=== PATIENT | male | born 1965 | race Hispanic/Latino ===

== ENCOUNTER 2018-07-04 09:18 | Emergency (ER) | payer BC ==
[~2018-07-04] VITALS: Ht 170.2 cm; Wt 81.2 kg
[~2018-07-04 09:18] MED LIST: CLINDAMYCIN HC150 MG PO; PROCTOZONE-HC30 GM; VITAMIN D35000 UNIT PO
--- NOTE | 2018-07-04 09:25 | NUR ---
PT DECLINES OFFER FOR CAREER DEVELOPMENT FACILITATOR AT THIS TIME. PT ADVISED TO LET NURSE KNOW AT ANYTIME IF HE PREFERS SEASONING SPRAYER SERVICES. PT VERBALIZED UNDERSTANDING.
[2018-07-04 10:29] LABS: BASOPHILS % 1.2 % (0.0-1.0); EOSINOPHILS # (AUTO) 0.1 (0.0-0.4); EOSINOPHILS % 3.2 % (0.0-6.0); HEMATOCRIT 41.7 % (38.2-49.6); HEMOGLOBIN 14.8 g/dL (14.0-18.0); LYMPHOCYTES # (AUTO) 1.2 (1.0-3.2); LYMPHOCYTES % 33.9 % (18.0-39.1); MEAN CORPUSCULAR HGB CONC 35.5 g/dL (31-35); MEAN CORPUSCULAR VOLUME 92.9 fL (81-99); MONOCYTES # (AUTO) 0.5 (0.2-0.8); NEUTROPHILS # (AUTO) 1.7 (2.1-6.9); NEUTROPHILS % 48.4 % (38.7-80.0); PLATELET COUNT 207 x10e3/uL (140-360); RED BLOOD COUNT 4.49 x10e6/uL (4.3-5.7); RED CELL DISTRIBUTION WIDTH 11.6 % (11.7-14.4)
[2018-07-04 10:45] LABS: ALANINE AMINOTRANSFERASE 28 IU/L (0-55); ALBUMIN 3.9 g/dL (3.5-5.0); ALBUMIN/GLOBULIN RATIO 1.2 (0.8-2.0); ALKALINE PHOSPHATASE 67 IU/L (40-150); ANION GAP 12.7 mmol/L (8-16); BLOOD UREA NITROGEN 8 mg/dL (7-26); BUN/CREATININE RATIO 11 (6-25); CALCIUM 9.1 mg/dL (8.4-10.2); CARBON DIOXIDE 24 mmol/L (22-29); CHLORIDE 93 mmol/L (98-107); CREATINE KINASE 58 IU/L (30-200); CREATININE, SERUM 0.76 mg/dL (0.72-1.25); EST GLOMERULAR FILTRATION RATE > 60 ML/MIN (60-); GLUCOSE 251 mg/dL (74-118); POTASSIUM 3.7 mmol/L (3.5-5.1); SODIUM 126 mmol/L (136-145)
--- NOTE | 2018-07-04 11:04 | Diagnostic Imaging Report ---
Examination: Single AP view of the chest. COMPARISON: None. INDICATION: Chest palpitations DISCUSSION: Lines/tubes: None. Lungs: The lungs are well inflated and clear. No of pneumonia or pulmonary edema. Pleura: No pleural effusion or pneumothorax. Heart and mediastinum: The heart and the mediastinum are unremarkable. Bones and soft tissues: No acute bony abnormalities. IMPRESSION: 1. No acute cardiopulmonary abnormalities. Signed by: Dr. Kwesi Greenwood M.D. on 07/04/2018 11:00 AM
[2018-07-04] MEDS ORDERED: SODIUM CHLORIDE 0.9% 1000ML 1,000 ML IV SCH (11:15)
--- NOTE | 2018-07-04 11:17 | NUR ---
rec'd pt in walking rounds with [facility] for continuity of cARE.
[2018-07-04 12:10] VITALS: BP 119/83
== END 2018-07-04 12:11 | disposition home or self-care (01) ==
LOC: ER 09:18
DX: R00.2 Palpitations (principal)
CPT/HCPCS: 36415; 71045; 80053; 82550; 82553; 83735; 84484; 85025; 93005; 99283; J7030